=== PATIENT | male | born 1985 | race Caucasian/White ===

== ENCOUNTER → 2018-08-13 16:22 | Outpatient (CLI) | payer OTHER, MEDICAID, SELFPAY | DX: Z23 Encounter for immunization (principal) | CPT/HCPCS: 90471; 90686 ==

== ENCOUNTER → 2019-04-10 07:59 | Outpatient (CLI) | payer OTHER, MEDICAID, SELFPAY ==
[2019-04-10 08:51] LABS: Add Manual Diff / Slide Review NO; Basophils Absolute Auto 0 /uL (0-100); Basophils Percent Auto 0.2 % (0-2); Eosinophils Absolute Auto 100 /uL (0-450); Eosinophils Percent Auto 1.3 % (2-4); Hematocrit 45.4 % (41-53); Hemoglobin 15.4 g/dL (13.5-17.5); Lymphocytes Absolute Auto 1100 /uL (1100-4500); Lymphocytes Percent Auto 22.5 % (25-40); Mean Corpuscular Hemoglobin 28.8 PG (26-34); Mean Corpuscular Volume 84.8 fL (80-100); Monocytes Absolute Auto 300 /uL (0-900); Monocytes Percent Auto 5.6 % (3-14); Neutrophils Absolute Auto 3500 /uL (1500-7000); Neutrophils Percent Auto 70.4 % (50-75); Platelet Count 265 X10^3/uL (150-400); Red Blood Cell Count 5.35 X10^6/uL (4.5-5.9); Red Cell Distribution Width 12.8 % (11.6-14.8)
[2019-04-10 09:13] LABS: Alanine Aminotransferase 36 IU/L (21-72); Albumin 4.4 g/dL (3.5-5.0); Albumin Globulin Ratio 1.8 (1.0-2.8); Alkaline Phosphatase 101 U/L (38-126); Aspartate Aminotransferase 29 IU/L (17-59); Bilirubin Total 0.2 mg/dL (0.2-1.3); Blood Urea Nitrogen 15 mg/dL (9-20); Calcium 9.1 mg/dL (8.4-10.2); Carbon Dioxide 30 mmol/L (22-32); Chloride 102 mmol/L (98-107); Estimated Glomerular Filt Rate > 60.0 mL/min (>60); Globulin 2.5 g/dL (1.7-4.1); Glucose 88 mg/dL (70-100); HEMOLYSIS < 15 (0-50); Potassium 4.5 mmol/L (3.4-5.1); Sodium 140 mmol/L (137-145); Total Protein 6.9 g/dL (6.3-8.2)
== END ==
PROVIDERS: PCP Family Medicine; Visit Provider Psychiatry & Neurology Psychiatry
DX: F33.9 Major depressive disorder, recurrent, unspecified (principal); F41.9 Anxiety disorder, unspecified; G47.00 Insomnia, unspecified
CPT/HCPCS: 36415; 80053; 80183; 85025

== ENCOUNTER → 2019-08-14 08:32 | Outpatient (CLI) | payer OTHER, MEDICAID, SELFPAY | PROVIDERS: PCP Family Medicine | DX: Z23 Encounter for immunization (principal) | CPT/HCPCS: 90471; 90686 ==

== ENCOUNTER → 2019-11-02 14:17 | Outpatient (CLI) | payer OTHER, MEDICAID, SELFPAY ==
[2019-11-02 16:06] LABS: Influenza A - CEPHEID Flu A NEGATIVE (NEGATIVE); Influenza B - CEPHEID Flu B NEGATIVE (NEGATIVE)
== END ==
PROVIDERS: PCP Family Medicine; Visit Provider Nurse Practitioner
DX: R68.89 Other general symptoms and signs (principal)
CPT/HCPCS: 87502

== ENCOUNTER → 2019-12-25 14:55 | Outpatient (ROUT) | payer OTHER, MEDICAID, SELFPAY ==
[2019-12-25 15:31] LABS: Influenza A - CEPHEID Flu A NEGATIVE (NEGATIVE); Influenza B - CEPHEID Flu B NEGATIVE (NEGATIVE)
== END ==
PROVIDERS: Visit Provider Student in an Organized Health Care Education/Training Program
DX: R05 Cough (principal); R52 Pain, unspecified
CPT/HCPCS: 87502

== ENCOUNTER → 2020-02-02 11:11 | Outpatient (CLI) | payer OTHER, MEDICAID, SELFPAY | PROVIDERS: PCP Family Medicine; Visit Provider Physician Assistant | DX: J02.9 Acute pharyngitis, unspecified (principal) | CPT/HCPCS: 87070 ==

== ENCOUNTER → 2020-02-15 11:50 | Outpatient (CLI) | payer OTHER, MEDICAID, SELFPAY ==
[2020-02-17 04:12] LABS: COVID19 Sendout Not Detected (Not Detected)
== END ==
PROVIDERS: PCP Family Medicine; Visit Provider Physician Assistant
DX: R05 Cough (principal)
CPT/HCPCS: 87635

== ENCOUNTER → 2020-03-19 10:57 | Outpatient (CLI) | payer OTHER, MEDICAID, SELFPAY ==
[2020-03-19 12:02] LABS: Add Manual Diff / Slide Review NO; Basophils Absolute Auto 0 /uL (0-100); Basophils Percent Auto 0.3 % (0-2); Eosinophils Absolute Auto 100 /uL (0-450); Eosinophils Percent Auto 1.8 % (2-4); Hematocrit 47.2 % (41-53); Hemoglobin 15.8 g/dL (13.5-17.5); Lymphocytes Absolute Auto 900 /uL (1100-4500); Lymphocytes Percent Auto 17.1 % (25-40); Mean Corpuscular HGB Conc 33.5 % (30-36); Mean Corpuscular Hemoglobin 29.8 PG (26-34); Monocytes Absolute Auto 300 /uL (0-900); Monocytes Percent Auto 5.2 % (3-14); Neutrophils Absolute Auto 4100 /uL (1500-7000); Neutrophils Percent Auto 75.6 % (50-75); Platelet Count 243 X10^3/uL (150-400); Red Cell Distribution Width 13.8 % (11.6-14.8); White Blood Cell Count 5.4 X10^3/uL (4.5-11.0)
[2020-03-19 13:06] LABS: Alanine Aminotransferase 21 IU/L (<50); Albumin 4.9 g/dL (3.5-5.0); Albumin Globulin Ratio 1.6 (1.0-2.8); Alkaline Phosphatase 82 U/L (38-126); Aspartate Aminotransferase 27 IU/L (17-59); BUN Creatinine Ratio 15.7 (6-22); Bilirubin Total 0.3 mg/dL (0.2-1.3); Blood Urea Nitrogen 16 mg/dL (9-20); Calcium 9.7 mg/dL (8.4-10.2); Carbon Dioxide 25 mmol/L (22-32); Chloride 104 mmol/L (98-107); Estimated Glomerular Filt Rate > 60.0 mL/min (>60); Glucose 93 mg/dL (70-100); HEMOLYSIS < 15 (0-50); Potassium 4.5 mmol/L (3.4-5.1); Sodium 139 mmol/L (137-145); Total Protein 7.9 g/dL (6.3-8.2)
[2020-03-20 01:44] LABS: Carbamazepine Tegretol Level 0.5 ug/mL (4.0-12.0)
== END ==
PROVIDERS: PCP Psychiatry & Neurology Psychiatry; Referring Provider Psychiatry & Neurology Psychiatry; Visit Provider Psychiatry & Neurology Psychiatry
DX: F41.9 Anxiety disorder, unspecified (principal); F90.9 Attention-deficit hyperactivity disorder, unspecified type
CPT/HCPCS: 36415; 80053; 80156; 85025

== ENCOUNTER → 2020-10-20 12:52 | Outpatient (CLI) | payer OTHER, MEDICAID, SELFPAY | PROVIDERS: PCP Psychiatry & Neurology Psychiatry; Referring Provider Internal Medicine; Visit Provider Internal Medicine | DX: Z23 Encounter for immunization (principal) | CPT/HCPCS: 90471; 90686 ==

== ENCOUNTER → 2021-08-19 11:01 | Outpatient (CLI) | payer OTHER, MEDICAID, SELFPAY ==
[2021-08-19 14:13] LABS: COVID19 -Nasal RAPID Negative (Negative)
== END ==
PROVIDERS: PCP Psychiatry & Neurology Psychiatry; Visit Provider Physician Assistant
DX: Z20.822 Contact with and (suspected) exposure to COVID-19 (principal)
CPT/HCPCS: 87635

== ENCOUNTER → 2021-08-24 12:31 | Outpatient (CLI) | payer OTHER, MEDICAID, SELFPAY ==
[2021-08-24 13:31] LABS: COVID19 -Nasal RAPID Negative (Negative)
== END ==
PROVIDERS: PCP Psychiatry & Neurology Psychiatry; Referring Provider Nurse Practitioner Family; Visit Provider Nurse Practitioner Family
DX: Z20.822 Contact with and (suspected) exposure to COVID-19 (principal)
CPT/HCPCS: 87635

== ENCOUNTER → 2021-08-29 17:20 | Outpatient (CLI) | payer OTHER, MEDICAID, SELFPAY ==
[2021-08-29 18:25] LABS: COVID19 -Nasal RAPID Negative (Negative)
== END ==
PROVIDERS: PCP Psychiatry & Neurology Psychiatry; Visit Provider Nurse Practitioner Family
DX: Z20.822 Contact with and (suspected) exposure to COVID-19 (principal); J02.9 Acute pharyngitis, unspecified
CPT/HCPCS: 87635

== ENCOUNTER → 2021-09-01 | Outpatient (CLI) | payer OTHER, MEDICAID, SELFPAY | PROVIDERS: PCP Psychiatry & Neurology Psychiatry; Referring Provider Internal Medicine; Visit Provider Internal Medicine | DX: Z23 Encounter for immunization (principal) | CPT/HCPCS: 90471; 90686 ==

== ENCOUNTER → 2021-10-21 11:17 | Outpatient (CLI) | payer OTHER, MEDICAID, SELFPAY ==
[2021-10-21 11:50] LABS: Add Manual Diff / Slide Review NO; Basophils Absolute Auto 0 /uL (0-100); Basophils Percent Auto 0.1 % (0-2); Eosinophils Absolute Auto 100 /uL (0-450); Eosinophils Percent Auto 1.9 % (2-4); Hematocrit 43.8 % (41-53); Hemoglobin 15.1 g/dL (13.5-17.5); Lymphocytes Absolute Auto 1100 /uL (1100-4500); Lymphocytes Percent Auto 18.9 % (25-40); Mean Corpuscular HGB Conc 34.5 % (30-36); Mean Corpuscular Hemoglobin 29.7 PG (26-34); Mean Corpuscular Volume 86.1 fL (80-100); Monocytes Absolute Auto 300 /uL (0-900); Monocytes Percent Auto 5.3 % (3-14); Neutrophils Absolute Auto 4300 /uL (1500-7000); Neutrophils Percent Auto 73.8 % (50-75); Platelet Count 270 X10^3/uL (150-400); Red Blood Cell Count 5.09 X10^6/uL (4.5-5.9); Red Cell Distribution Width 13.1 % (11.6-14.8); White Blood Cell Count 5.8 X10^3/uL (4.5-11.0)
[2021-10-21 12:02] LABS: Alanine Aminotransferase 37 IU/L (<50); Albumin 4.3 g/dL (3.5-5.0); Albumin Globulin Ratio 1.4 (1.0-2.8); Alkaline Phosphatase 110 U/L (38-126); Aspartate Aminotransferase 33 IU/L (17-59); Bilirubin Total 0.2 mg/dL (0.2-1.3); Blood Urea Nitrogen 16 mg/dL (9-20); Calcium 9.1 mg/dL (8.4-10.2); Carbon Dioxide 30 mmol/L (22-32); Chloride 102 mmol/L (98-107); Estimated Glomerular Filt Rate > 60.0 mL/min (>60); Glucose 142 mg/dL (70-100); HEMOLYSIS 16 (0-50); Sodium 139 mmol/L (137-145); Total Protein 7.3 g/dL (6.3-8.2)
[2021-10-21 12:14] LABS: Potassium 3.8 mmol/L (3.4-5.1)
== END ==
PROVIDERS: PCP Student in an Organized Health Care Education/Training Program; Referring Provider Psychiatry & Neurology Psychiatry; Visit Provider Psychiatry & Neurology Psychiatry
DX: F33.9 Major depressive disorder, recurrent, unspecified (principal); F90.9 Attention-deficit hyperactivity disorder, unspecified type; F41.9 Anxiety disorder, unspecified; G47.00 Insomnia, unspecified
CPT/HCPCS: 36415; 80053; 85025

== ENCOUNTER 2021-10-31 19:24 | Emergency (ER) | payer OTHER, SELFPAY ==
[2021-10-31 19:42] VITALS: BP 215/115; PULSE 63; RESP 18; TEMP 36.5; O2SAT 98
--- NOTE | 2021-10-31 20:01 | ED.GENADULT ---
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 He does not think it punctured through his skin, he felt hit and then let go of everything and it did not penetrate the outer layer of skin. Patient does not have any marking on his pain, he did not bleed, does not and penetrated his. Related Data Home Medications Medication Instructions Recorded Confirmed BusPIRone Hydrochloride (Buspirone 30 mg PO AM #0 10/22/09 08/18/20 HCl) buspirone 30 mg tablet mg PO BID tab 11/02/19 08/18/20 levothyroxine [L-Thyroxine] PO 11/02/19 08/18/20 methylphenidate HCl [Ritalin] PO 11/02/19 08/18/20 oxcarbazepine 600 mg tablet 600 mg PO TID tab 11/02/19 08/18/20 sertraline PO 11/02/19 08/18/20 Previous Rx's Medication Instructions Recorded albuterol sulfate 90 mcg/actuation 2 puff INHALATION Q4-6H PRN #8 gram 11/02/19 aerosol inhaler benzonatate 100 mg capsule 100 mg PO BID PRN #20 cap 11/02/19 mupirocin 2 % topical ointment 1 applic TOP TID #30 gram 08/18/20 Allergies Allergy/AdvReac Type Severity Reaction Status Date / Time [place] Allergy Unknown Uncoded 08/18/20 13:21 Review of Systems <KAEL Mckeon - Last Filed: 10/31/21 21:27> Review of Systems Narrative: General: denies fever, chills Head/Neck: denies headache, neck pain Eyes: denies visual changes, eye pain Cardio: denies chest pain, palpitations Respiratory: denies shortness of breath, cough GI: denies abdominal pain, nausea, vomiting, or diarrhea : denies dysuria, hematuria MSK: denies joint pain, muscle weakness Skin: denies rash, itching Neuro: denies numbness, tingling Patient History <KAEL Mckeon - Last Filed: 10/31/21 21:27> Medical History Skin lesion of hand Social History Smoking Status: Former smoker Smoking Status: Former smoker tobacco type: vaping Exam <KAEL Mckeon - Last Filed: 10/31/21 21:27> Narrative Exam Narrative: Independently reviewed vitals signs and nursing notes. General: Awake, alert, nontoxic, no cardiorespiratory distress Head/Neck: Atraumatic, neck full range of motion Eyes: EOMI, conjunctiva normal Nose: nares patent, no rhinorrhea Mouth/Throat: moist mucus membranes Cardio: Regular rate and rhythm, no peripheral edema Respiratory: respirations unlabored without wheezing, stridor, or rales. No retractions. GI: Abdomen soft, nontender MSK: Moves all extremities, neurovascularly intact Skin: Normal capillary refill, no rash, left hand without any sign of needlestick, no erythema or edema. Neuro: Normal speech and cognition, normal gait Initial Vital Signs Initial Vital Signs: Vital Signs Temperature 97.7 F 10/31/21 19:42 Pulse Rate 63 10/31/21 19:42 Respiratory Rate 18 10/31/21 19:42 Blood Pressure 215/115 H 10/31/21 19:42 Pulse Oximetry 98 10/31/21 19:42 <Andrew Real DO - Last Filed: 11/01/21 07:00> Initial Vital Signs Initial Vital Signs: Vital Signs Temperature 97.7 F 10/31/21 19:42 Pulse Rate 63 10/31/21 19:42 Respiratory Rate 18 10/31/21 19:42 Blood Pressure 215/115 H 10/31/21 19:42 Pulse Oximetry 98 10/31/21 19:42 Course <KAEL Mckeon - Last Filed: 10/31/21 21:27> Vital Signs Vital signs: Vital Signs - 8 hr 10/31/21 19:42 10/31/21 20:27 Temperature 97.7 F Pulse Rate 63 68 Respiratory Rate 18 18 Blood Pressure 215/115 H 188/112 H Pulse Oximetry 98 99 <Andrew Real DO - Last Filed: 11/01/21 07:00> Vital Signs Vital signs: Vital Signs - 8 hr 10/31/21 19:42 10/31/21 20:27 Temperature 97.7 F Pulse Rate 63 68 Respiratory Rate 18 18 Blood Pressure 215/115 H 188/112 H Pulse Oximetry 98 99 Medical Decision Making <KAEL Mckeon - Last Filed: 10/31/21 21:27> MDM Narrative Medical decision making narrative: 36-year-old male presents to emergency department with complaint of possible needle stick to his left hand while cleaning his tray. Patient is employed here at the hospital, there was a tuberculin syringe with a needle I it on a tree he went to clean it he felt a poke, and after everything, noticed a needle. He did not bleed, there was not deep penetration by this needle, he did not meet criteria for substantial blood borne exposure, there is no needle prick present. [id number]. Red packet for blood borne exposure was not completed as patient did not meet criteria. Patient understands and agrees to this, he does endorse drinking at least 3 energy drinks today, so his blood pressure was rechecked until toes less than 200, he did not have a headache, or any other symptoms. Patient is appropriate and amenable to discharge home. Vital signs are stable on repeat examination is unremarkable. Patient has been informed of results. Patient has been given strict return to ER precautions for any new or worsening symptoms. Patient understands to follow up closely with outpatient providers as instructed. Patient understands plan and agrees to discharge home. All questions and concerns answered at this time. Discharge Plan Departure Patient Disposition: Home Clinical Impression: Work related injury Needle exposure Qualifiers: Encounter type: initial encounter Qualified Code(s): X58.XXXA - Exposure to other specified factors, initial encounter Instructions: DI for Accidental Exposure to Body Fluids Activity Restrictions/Additional Instructions: *You have been diagnosed with a needle exposure but I do not feel like this is a bloodborn exposure. Please follow-up with your primary care provider if you have any worsening of the condition whatsoever. Your L and I claim [place] which is your reference if for some reason [id number]. I am sorry that this happened, I hope this never happened she again. I am glad that you did not get stuck deeply. Have a good shift tomorrow :) *What to do: *Please continue to take your regular medications as directed. [ ] New medication prescriptions sent to your pharmacy: [ ] [ ] New medication written as a paper prescription [ x] No new medications given *Please follow up with your primary care provider in 2-3 days, call for an appointment. Let them know you were seen in the Emergency Department and that we ask that you be seen in follow up. We will electronically transmit a record of today's note if your PCP is in our system *If you do not have a primary care provider please contact the [facility] Resource line at [phone]. They will ask some questions about your medical history and help get you set up with a doctor in the community. *Return to Emergency Department if you should have any new, worsening or concerning symptoms, such as [fever greater than 101F, chills, worsening pain, persistent vomiting or other bothersome symptoms] Prescriptions: No Action oxcarbazepine 600 mg tablet 600 mg PO TID 0RF levothyroxine PO 0RF buspirone 30 mg tablet PO BID 0RF sertraline PO 0RF methylphenidate HCl PO 0RF benzonatate 100 mg capsule 100 mg PO BID PRN (Reason: cough) Qty: 20 0RF albuterol sulfate 90 mcg/actuation HFA aerosol inhaler 2 puff INHALATION Q4-6H PRN (Reason: Cough, wheezing, shortness of breath) Qty: 8 0RF mupirocin 2 % ointment 1 applic TOP TID Qty: 30 0RF BusPIRone Hydrochloride (Buspirone HCl) 30 mg PO AM Qty: 0 0RF Referrals: Joleen Fulton MD [Primary Care Provider] - <Andrew Real, DO - Last Filed: 11/01/21 07:00> Cosign ED Attending Coskgature Attestation: Dr Real Co-Sign Statement: I was available for consultation during this patient's emergency department visit. This chart is signed by myself for administrative purposes only. I did not have direct contact with this patient during this visit. They were seen independently by the APC.
[2021-10-31 20:27] VITALS: BP 188/112; PULSE 68; RESP 18; O2SAT 99
== END 2021-10-31 20:27 | disposition home or self-care (01) ==
PROVIDERS: Emergency Provider Nurse Practitioner Critical Care Medicine; PCP Student in an Organized Health Care Education/Training Program
DX: Z77.21 Contact with and (suspected) exposure to potentially hazardous body fluids (principal); Z87.891 Personal history of nicotine dependence
CPT/HCPCS: 99281

== ENCOUNTER 2022-09-12 17:45 | Emergency (ER) | payer OTHER, SELFPAY ==
[2022-09-12 18:12] VITALS: BP 184/113; PULSE 67; RESP 18; TEMP 36.6; O2SAT 98; BMI 26.6
--- NOTE | 2022-09-12 19:21 | ED.UPPEXIN ---
HPI - Extremity Injury (Upper) <KAEL Mckeon - Last Filed: 09/12/22 19:26> General Chief Complaint: Extremity Injury, Upper Stated Complaint: RT. HAND PINKY LACERATION Time Seen by Provider: 09/12/22 17:58 Source: patient Mode of arrival: Ambulatory History of Present Illness HPI narrative: This is a 37-year-old male who presents to the emergency department with a laceration to the lateral aspect of his left little finger adjacent to the PIP joint. Patient works in the kitchen, states that he dropped the knife and it cut the lateral aspect of his left hand little finger. He is [id number], bleeding was controlled with Coban initially. He does not remember when his last tetanus vaccination was, states it is over 5 years so he agrees to have another tetanus vaccination today. He denies any range of motion deficit, numbness or tingling, or foreign body. Related Data Home Medications Medication Instructions Recorded Confirmed BusPIRone Hydrochloride (Buspirone 30 mg PO AM ##0 10/22/09 08/18/20 HCl) buspirone 30 mg tablet mg PO BID 11/02/19 08/18/20 levothyroxine [L-Thyroxine] PO 11/02/19 08/18/20 methylphenidate HCl [Ritalin] PO 11/02/19 08/18/20 oxcarbazepine 600 mg tablet 600 mg PO TID 11/02/19 08/18/20 sertraline PO 11/02/19 08/18/20 Previous Rx's Medication Instructions Recorded albuterol sulfate 90 mcg/actuation 2 puff inhalation Q4-6H PRN Cough, 11/02/19 aerosol inhaler wheezing, shortness of breath #8 grams benzonatate 100 mg capsule 100 mg PO BID PRN cough #20 caps 11/02/19 mupirocin 2 % topical ointment 1 applic topical TID #30 grams 08/18/20 Allergies Allergy/AdvReac Type Severity Reaction Status Date / Time [place] Allergy Unknown Uncoded 08/18/20 13:21 Review of Systems <KAEL Mckeon - Last Filed: 09/12/22 19:26> Review of Systems Narrative: Review of systems is negative for acute abnormalities unless otherwise noted in HPI Patient History <KAEL Mckeon - Last Filed: 09/12/22 19:26> Medical History Skin lesion of hand Social History Smoking Status: Former smoker Smoking Status: Former smoker tobacco type: vaping Substance Use Type: does not use Exam <KAEL Mckeon - Last Filed: 09/12/22 19:26> Narrative Exam Narrative: Reviewed vitals signs and nursing notes. General: cooperative, comfortable, in no acute distress, well groomed MSK: moves all extremities, neurovascularly intact, no weakness, normal tone, full range of motion both flexion and extension of his left hand little finger, cap refills brisk Skin: brisk capillary refill, without pallor, laceration to the lateral aspect of his 5th digit left hand, adjacent to the PIP joint, approximately 1 cm long Neuro: normal speech and cognition, A&O x3, ambulatory, clear speech Psych: mental status is grossly normal, congruent mood, normal affect, pleasant and cooperative Initial Vital Signs Initial Vital Signs: Vital Signs Temperature 97.9 F 09/12/22 18:12 Pulse Rate 67 09/12/22 18:12 Respiratory Rate 18 09/12/22 18:12 Blood Pressure 184/113 H 09/12/22 18:12 Pulse Oximetry 98 09/12/22 18:12 Oxygen Delivery Method 09/12/22 18:12 <Sky Morgan MD - Last Filed: 09/12/22 20:44> Initial Vital Signs Initial Vital Signs: Vital Signs Temperature 97.9 F 09/12/22 18:12 Pulse Rate 67 09/12/22 18:12 Respiratory Rate 18 09/12/22 18:12 Blood Pressure 184/113 H 09/12/22 18:12 Pulse Oximetry 98 09/12/22 18:12 Oxygen Delivery Method 09/12/22 18:12 Procedures <KAEL Mckeon - Last Filed: 09/12/22 19:26> Laceration Repair Laceration 1: Site: hand Side (If applicable): left Size (cm): 1 Description: linear Depth: simple, single layer Local Anesthetic: lidocaine 2% Amount of anesthesia used (mL): 2 Pre-repair: wound explored, irrigated extensively and deep structures intact Skin layer closed with: nylon Skin layer suture size: 6-0 Number of sutures: 4 Technique: simple, interrupted Course <KAEL Mckeon - Last Filed: 09/12/22 19:26> Orders Ordered: Discontinued Medications Bacitracin (Bacitracin Oint 0.9 Gm Pckt) 1 applic TOP NOW ONE Stop: 09/12/22 19:04 Last Admin: 09/12/22 19:27 Dose: 1 applic Documented By: TRICE Diphtheria/Tetanus/Acell Pertussis (Tet,Diph,Pertuss(Acell),Vac/Pf 0.5 Ml Syringe) 0.5 ml IM .ONCE ONE Stop: 09/12/22 18:47 Last Admin: 09/12/22 19:26 Dose: 0.5 ml Documented By: TRICE Ketorolac Tromethamine (Ketorolac 10 Mg Tablet) 10 mg PO NOW ONE Stop: 09/12/22 18:48 Last Admin: 09/12/22 19:27 Dose: 10 mg Documented By: TRICE Lidocaine HCl (Lidocaine 1% 20 Ml) 20 ml INJ INTRA-OP ONE Stop: 09/12/22 18:19 Last Admin: 09/12/22 18:38 Dose: Not Given Documented By: TRICE Lidocaine HCl (Lidocaine 2% Inj Mdv 20ml) 1 ml SUBCUT NOW ONE Stop: 09/12/22 18:19 Last Admin: 09/12/22 18:39 Dose: Not Given Documented By: TRICE Vital Signs Vital signs: Vital Signs - 8 hr 09/12/22 18:12 Temperature 97.9 F Pulse Rate 67 Respiratory Rate 18 Blood Pressure 184/113 H Pulse Oximetry 98 Oxygen Delivery Method Room Air <Sky Morgan MD - Last Filed: 09/12/22 20:44> Orders Ordered: Discontinued Medications Bacitracin (Bacitracin Oint 0.9 Gm Pckt) 1 applic TOP NOW ONE Stop: 09/12/22 19:04 Last Admin: 09/12/22 19:27 Dose: 1 applic Documented By: TRICE Diphtheria/Tetanus/Acell Pertussis (Tet,Diph,Pertuss(Acell),Vac/Pf 0.5 Ml Syringe) 0.5 ml IM .ONCE ONE Stop: 09/12/22 18:47 Last Admin: 09/12/22 19:26 Dose: 0.5 ml Documented By: TRICE Ketorolac Tromethamine (Ketorolac 10 Mg Tablet) 10 mg PO NOW ONE Stop: 09/12/22 18:48 Last Admin: 09/12/22 19:27 Dose: 10 mg Documented By: TRICE Lidocaine HCl (Lidocaine 1% 20 Ml) 20 ml INJ INTRA-OP ONE Stop: 09/12/22 18:19 Last Admin: 09/12/22 18:38 Dose: Not Given Documented By: TRICE Lidocaine HCl (Lidocaine 2% Inj Mdv 20ml) 1 ml SUBCUT NOW ONE Stop: 09/12/22 18:19 Last Admin: 09/12/22 18:39 Dose: Not Given Documented By: TRICE Vital Signs Vital signs: Vital Signs - 8 hr 09/12/22 18:12 Temperature 97.9 F Pulse Rate 67 Respiratory Rate 18 Blood Pressure 184/113 H Pulse Oximetry 98 Oxygen Delivery Method Room Air MDM - Extremity Injury (Upper) <KAEL Mckeon - Last Filed: 09/12/22 19:26> MDM Narrative Medical decision making narrative: This is a 37-year-old male presents to the emergency department after a work-related injury where he accidentally cut the lateral aspect of his left little finger when he dropped a knife. No foreign body, patient is neurovascularly intact without range of motion deficit. His tetanus vaccination was updated, suture repair was completed of his 1 cm laceration to the lateral aspect with 4 nylon sutures. 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 Patient states understanding, his L and I paperwork was [place], [id number]. He was given instructions to have his sutures removed in 7-10 days, return for any redness or streaking up his hand, signs of infection, increasing pain or range of motion abnormality. Patient is appropriate and amenable to discharge home. Vital signs are stable on repeat examination is unremarkable. Patient has been informed of results. Patient has been given strict return to ER precautions for any new or worsening symptoms. Patient understands to follow up closely with outpatient providers as instructed. Patient understands plan and agrees to discharge home. All questions and concerns answered at this time. Discharge Plan Departure Patient Disposition: Home Clinical Impression: Work related injury Finger laceration Qualifiers: Encounter type: initial encounter Finger: little finger Damage to nail status: without damage Foreign body presence: without foreign body Laterality: left Qualified Code(s): S61.217A - Laceration without foreign body of left little finger without damage to nail, initial encounter Instructions: DI for Laceration Repair -- Finger Activity Restrictions/Additional Instructions: *You have been diagnosed with a laceration to your 5th digit left hand. Please have your sutures removed in 7-10 days as long as it is fully healed and does not have any blood coming from the wound any longer. Please keep it covered with antibiotic ointment and a Band-Aid, while you are working, please wear a glove to prevent anything from outside getting into your wound. Thank you for your patients today, I hope this gets better quickly, if you notice signs of redness or streaking up your hand, please come back for another evaluation using your same L&I claim number. Please use Tylenol and ibuprofen as needed for pain. *What to do: *Please continue to take your regular medications as directed. [ ] New medication prescriptions sent to your pharmacy: [ ] [ ] New medication written as a paper prescription [ x] No new medications given *Please follow up with your primary care provider in 2-3 days, call for an appointment. Let them know you were seen in the Emergency Department and that we asked that you be seen for follow-up. We will electronically transmit a record of today's note if your PCP is in our system *If you do not have a primary care provider please contact [phone] to establish care with one of the [facility] primary care providers. *Return to Emergency Department if you should have any new, worsening, or concerning symptoms, such as [fever greater than 101F, chills, worsening pain, persistent vomiting or other bothersome symptoms]. Prescriptions: No Action oxcarbazepine 600 mg tablet 600 mg PO TID levothyroxine PO buspirone 30 mg tablet PO BID sertraline PO methylphenidate HCl PO benzonatate 100 mg capsule 100 mg PO BID PRN (Reason: cough) Qty: 20 0RF albuterol sulfate 90 mcg/actuation HFA aerosol inhaler 2 puff INHALATION Q4-6H PRN (Reason: Cough, wheezing, shortness of breath) Qty: 8 0RF mupirocin 2 % ointment 1 applic TOP TID Qty: 30 0RF BusPIRone Hydrochloride (Buspirone HCl) 30 mg PO AM Qty: 0 Referrals: Joleen Fulton MD [Primary Care Provider] - Visit Report Forms: Patient Portal/API <Sky Morgan MD - Last Filed: 09/12/22 20:44> Cosign ED Attending Cosignature Attestation: I was immediately available in the department for consultation. ?This documentation has been reviewed and I agree with assessment and plan. Supervised by Sky Morgan MD
[2022-09-12] MEDS: TET,DIPH,PERTUSS(ACELL),VAC/PF 0.5 ML SYRINGE IM (19:26)
[2022-09-12] MEDS: BACITRACIN OINT 0.9 GM PCKT 1 APPLIC TOP (19:27)
[2022-09-12] MEDS: KETOROLAC 10 MG TABLET PO (19:27)
== END 2022-09-12 19:28 | disposition home or self-care (01) ==
PROVIDERS: Emergency Provider Nurse Practitioner Critical Care Medicine; PCP Student in an Organized Health Care Education/Training Program
DX: S61.217A Laceration without foreign body of left little finger without damage to nail, initial encounter (principal); W26.0XXA Contact with knife, initial encounter; Z23 Encounter for immunization; Y99.0 Civilian activity done for income or pay
CPT/HCPCS: 12001; 90471; 99283; 90715

== ENCOUNTER → 2022-10-02 19:11 | Outpatient (CLI) | payer OTHER, SELFPAY | PROVIDERS: PCP Student in an Organized Health Care Education/Training Program; Referring Provider Internal Medicine; Visit Provider Internal Medicine | DX: Z23 Encounter for immunization (principal) | CPT/HCPCS: 90471; 90686 ==

== ENCOUNTER 2022-12-18 13:09 | Emergency (ER) | payer OTHER, SELFPAY ==
[2022-12-18] VITALS (27 sets, daily range): BP systolic 158–197; BP diastolic 91–126; PULSE 49–80; RESP 11–24; TEMP 36.4; O2SAT 96–100; BMI 28.3
--- NOTE | 2022-12-18 13:18 | DI.RAD.S_ITS ---
PROCEDURE: XR CHEST 1V INDICATIONS: chest pain TECHNIQUE: One view of the chest was acquired. COMPARISON: None. FINDINGS: Surgical changes and devices: None. Lungs and pleura: Lungs are clear. No pleural effusions or pneumothorax. Mediastinum: Mediastinal contours appear normal. Heart size is normal. Bones and chest wall: No suspicious bony lesions. Overlying soft tissues appear unremarkable. IMPRESSION: No acute pulmonary process. Dictated by: Sidra Madrigal M.D. on 12/18/2022 at 14:25 Approved by: Sidra Madrigal M.D. on 12/18/2022 at 14:26
[2022-12-18] MEDS: ASPIRIN 81 MG CHEW TAB 324 MG PO (13:43)
[2022-12-18] MEDS: NITROGLYCERIN 0.4 MG SL TAB SL ×2 (13:43→14:04)
[2022-12-18 13:57] LABS: Alanine Aminotransferase 32 IU/L (<50); Albumin 4.7 g/dL (3.5-5.0); Albumin Globulin Ratio 1.4 (1.0-2.8); Alkaline Phosphatase 107 U/L (38-126); Aspartate Aminotransferase 27 IU/L (17-59); BUN Creatinine Ratio 14.3 (6-22); Bilirubin Total 0.3 mg/dL (0.2-1.3); Blood Urea Nitrogen 14 mg/dL (9-20); Carbon Dioxide 29 mmol/L (22-32); Chloride 100 mmol/L (98-107); Creatine Kinase 95 U/L (55-170); Estimated Glomerular Filt Rate > 60 mL/min (>60); Globulin 3.4 g/dL (1.7-4.1); Glucose 88 mg/dL (70-100); HEMOLYSIS < 15 (0-50); Lipase 102 U/L (23-300); Magnesium 1.9 mg/dL (1.6-2.3); Sodium 140 mmol/L (137-145); Total Protein 8.1 g/dL (6.3-8.2)
[2022-12-18 13:58] LABS: Add Manual Diff / Slide Review NO; Basophils Absolute Auto 0 /uL (0-100); Basophils Percent Auto 0.2 % (0-2); Eosinophils Absolute Auto 100 /uL (0-450); Eosinophils Percent Auto 1.7 % (2-4); Hematocrit 46.7 % (41-53); Hemoglobin 15.8 g/dL (13.5-17.5); Lymphocytes Absolute Auto 1300 /uL (1100-4500); Lymphocytes Percent Auto 21.7 % (25-40); Mean Corpuscular HGB Conc 33.9 % (30-36); Mean Corpuscular Hemoglobin 29.1 PG (26-34); Mean Corpuscular Volume 85.9 fL (80-100); Monocytes Absolute Auto 300 /uL (0-900); Monocytes Percent Auto 5.8 % (3-14); Neutrophils Absolute Auto 4200 /uL (1500-7000); Neutrophils Percent Auto 70.6 % (50-75); Platelet Count 251 X10^3/uL (150-400); Red Blood Cell Count 5.43 X10^6/uL (4.5-5.9); Red Cell Distribution Width 13.3 % (11.6-14.8)
[2022-12-18 14:09] LABS: Troponin I < 0.012 ng/mL (0.01-0.034)
[2022-12-18] MEDS: ACETAMINOPHEN 325 MG TABLET 975 MG PO (14:11)
--- NOTE | 2022-12-18 14:12 | PC.NURSE ---
chest pain relieved post 2nd nitro.
[2022-12-18 14:25] LABS: COVID19 -Nasal RAPID Negative (Negative)
[2022-12-18 14:50] LABS: Prothrombin Time 11.6 SECONDS (10.1-12.7)
[2022-12-18 14:52] LABS: PTT Partial Thromboplastin Tim 35 SECONDS (26-36)
--- NOTE | 2022-12-18 15:05 | ED_ITS ---
HPI - Chest Pain General Chief Complaint: Chest Pain Stated Complaint: chest pain,dizzy Time Seen by Provider: 12/18/22 14:13 Source: patient Mode of arrival: Ambulatory Limitations: no limitations History of Present Illness HPI narrative: This is a 37-year-old male with known hypertension hypothyroidism, bipolar d isorder who presents with complaint of chest pain substernal without radiation, shortness of breath and dizziness. Patient states he is had a couple of episodes in the last month always [employer] active usually work while he is exerting himself but once home. He states he is always been walking around her active when it. Today started about 11:00 a.m. this morning while he was at work. Patient states did not resolve until he got nitro sublingual. Had 2 nitro sublingual which resolved his chest pain. He also had aspirin 324 mg. Denies fevers, chills no cold cough or congestion. No new swelling in his extremities. Denies nausea or vomiting. No syncope but he did feel lightheaded. No diaphoresis. No issues such as diarrhea, constipation or urinary symptoms. Patient states he used to be on lisinopril it was stopped about a year ago has who is on propranolol his primary care physician thought that would be adequate for blood pressure control. He continues take his propranolol daily, he is on oxcarbazepine, BuSpar, sertraline Concerta for his bipolar as well as levothyroxine he had seen his physician for follow-up in last week they had written to start losartan 100 mg starting today. Patient has not been able to fill it yet today. He did have a prior episode of lithium p oisoning in the past had what sounds like a ureteral stent at that time. Patient states no other surgeries. He vapes tobacco, no alcohol, no illicit. His mom has hypertension, no other known cardiac history in his family. He has a sibling that is a year older which he states is healthy. His primary care physician is Dr. Taylor. Related Data Home Medications Medication Instructions Recorded Confirmed BusPIRone Hydrochloride (Buspirone 30 mg PO AM ##0 10/22/09 08/18/20 HCl) buspirone 30 mg tablet mg PO BID 11/02/19 08/18/20 levothyroxine [L-Thyroxine] PO 11/02/19 08/18/20 methylphenidate HCl [Ritalin] PO 11/02/19 08/18/20 oxcarbazepine 600 mg tablet 600 mg PO TID 11/02/19 08/18/20 sertraline PO 11/02/19 08/18/20 Previous Rx's Medication Instructions Recorded albuterol sulfate 90 mcg/actuation 2 puff inhalation Q4-6H PRN Cough, 11/02/19 aerosol inhaler wheezing, shortness of breath #8 grams benzonatate 100 mg capsule 100 mg PO BID PRN cough #20 caps 11/02/19 mupirocin 2 % topical ointment 1 applic topical TID #30 grams 08/18/20 Allergies Allergy/AdvReac Type Severity Reaction Status Date / Time iodine Allergy Verified 12/18/22 13:12 lithium Allergy Verified 12/18/22 13:12 Review of Systems Review of Systems ROS Unobtainable: All systems reviewed & are unremarkable except as noted in HPI and below Patient History Medical History Skin lesion of hand Social History Smoking Status: Current every day smoker Smoking Status: Current every day smoker tobacco type: vaping Substance Use Type: does not use Exam Narrative Exam Narrative: GENERAL: Alert and oriented x three, male in mild distress. HEENT: Head normocephalic, atraumatic, EOMI, pupils reactive, face symmetric, moist mucous membranes NECK: Supple, full range of motion CARDIOVASCULAR: Regular rate and rhythm without murmurs, rubs or gallops. No JVD. RESPIRATORY: Breath sounds equal bilaterally, no wheezes rales or rhonchi. No tachypnea or accessory muscle use. ABDOMEN: Soft, nontender. Normoactive bowel sounds all 4 quadrants. No guarding or rebound, rigidity, no mass : No CVA tenderness EXTREMITIES: Normal range of motion, no clubbing or edema. Neurovascularly intact NEUROLOGICAL: Cranial nerves II through XII grossly intact. Moving all extremities SKIN: Warm, dry, no petechiae, no rashes or lesions. Initial Vital Signs Initial Vital Signs: Vital Signs Temperature 97.6 F 12/18/22 13:12 Pulse Rate 68 12/18/22 13:12 Respiratory Rate 20 12/18/22 13:12 Blood Pressure 181/98 H 12/18/22 13:12 Pulse Oximetry 98 12/18/22 13:12 Oxygen Delivery Method 12/18/22 13:12 Scores HEART Score Heart Score history: Highly Suspicious Heart Score EKG: Normal Heart Score Age: < 45 years old Heart Score risk factors: 1-2 risk factors Heart Score troponin: < or = to normal limit Heart Score Total: 3 Course Orders Ordered: ED Orders 12/18/22 13:18 XR chest 1V Stat EKG-12 Lead Stat 12/18/22 13:30 Complete Blood Count AUTO DIFF Stat Comprehensive Metabolic Panel Stat Lipase Stat Magnesium Stat Partial Thromboplastin Time Stat Prothrombin Time INR Stat Troponin & CK Cardiac Panel Stat 12/18/22 13:34 COVID19 -Nasal RAPID/Pre-Proc Stat 12/18/22 15:40 Trop I [Troponin I] Stat Nitroglycerin (Nitroglycerin 0.4 Mg Sl Tab) 0.4 mg SL [id number] PRN PRN Reason: Chest Pain Last Admin: 12/18/22 14:04 Dose: 0.4 mg Documented By: Admin: 12/18/22 13:43 Dose: 0.4 mg Documented By: MARGARITA Discontinued Medications Acetaminophen (Acetaminophen 325 Mg Tablet) 975 mg PO NOW ONE Stop: 12/18/22 14:05 Last Admin: 12/18/22 14:11 Dose: 975 mg Documented By: ARLEY Aspirin (Aspirin 81 Mg Chew Tab) 324 mg PO NOW ONE Stop: 12/18/22 13:19 Last Admin: 12/18/22 13:43 Dose: 324 mg Documented By: MARGARITA Hydrochlorothiazide (Hydrochlorothiazide 25 Mg Tablet) 25 mg PO NOW ONE Stop: 12/18/22 16:47 Last Admin: 12/18/22 17:12 Dose: 25 mg Documented By: MORIAH Losartan Potassium (Losartan 50 Mg Tablet) 100 mg PO NOW ONE Stop: 12/18/22 16:47 Last Admin: 12/18/22 17:12 Dose: 100 mg Documented By: MORIAH Consultations Consultation #1: Dr. Taylor, Vital Signs Vital signs: Vital Signs - 8 hr 12/18/22 13:12 12/18/22 14:04 12/18/22 13:42 Temperature 97.6 F Pulse Rate 68 74 68 Respiratory Rate 20 17 Blood Pressure 181/98 H 162/105 H Pulse Oximetry 98 98 Oxygen Delivery Method Room Air 12/18/22 13:50 12/18/22 13:50 12/18/22 14:00 Temperature Pulse Rate 80 Respiratory Rate 16 Blood Pressure 162/102 H 162/105 H Pulse Oximetry 97 Oxygen Delivery Method 12/18/22 14:00 12/18/22 14:10 12/18/22 14:10 Temperature Pulse Rate 68 68 Respiratory Rate 15 14 Blood Pressure 158/91 H Pulse Oximetry 97 96 Oxygen Delivery Method 12/18/22 14:23 12/18/22 14:23 12/18/22 14:30 Temperature Pulse Rate 49 L Respiratory Rate 11 L Blood Pressure 173/102 H 173/103 H Pulse Oximetry 99 Oxygen Delivery Method 12/18/22 14:30 12/18/22 15:00 12/18/22 15:00 Temperature Pulse Rate 58 L 56 L Respiratory Rate 18 19 Blood Pressure 165/102 H Pulse Oximetry 99 99 Oxygen Delivery Method 12/18/22 15:30 12/18/22 15:30 12/18/22 16:11 Temperature Pulse Rate 52 L 63 Respiratory Rate 19 Blood Pressure 158/105 H Pulse Oximetry 98 100 Oxygen Delivery Method 12/18/22 16:13 12/18/22 16:13 12/18/22 16:30 Temperature Pulse Rate 61 Respiratory Rate 17 Blood Pressure 188/119 H 177/111 H Pulse Oximetry 100 Oxygen Delivery Method 12/18/22 16:30 Temperature Pulse Rate 57 L Respiratory Rate 18 Blood Pressure Pulse Oximetry 99 Oxygen Delivery Method MDM - Chest Pain Lab Data 12/18/22 13:30 12/18/22 13:30 Labs: Lab Results 12/18/22 12/18/22 12/18/22 Range/Units 13:30 13:30 13:30 WBC 6.0 (4.5-11.0) X10^3/uL RBC 5.43 (4.5-5.9) X10^6/uL Hgb 15.8 (13.5-17.5) g/dL Hct 46.7 (41-53) % MCV 85.9 (80-100) fL MCH 29.1 (26-34) PG MCHC 33.9 (30-36) % RDW 13.3 (11.6-14.8) % Plt Count 251 (150-400) X10^3/uL Neut % (Auto) 70.6 (50-75) % Lymph % (Auto) 21.7 L (25-40) % Childress % (Auto) 5.8 (3-14) % Eos % (Auto) 1.7 L (2-4) % Baso % (Auto) 0.2 (0-2) % Neut # (Auto) 4200 (0803-5643) /uL Lymph # (Auto) 1300 (3666-4031) /uL Childress # (Auto) 300 (0-900) /uL Eos # (Auto) 100 (0-450) /uL Baso # (Auto) 0 (0-100) /uL PT 11.6 (10.1-12.7) SECONDS INR 1.0 (0.9-1.3) APTT 35 (26-36) SECONDS Sodium 140 (137-145) mmol/L Potassium 4.0 (3.4-5.1) mmol/L Chloride 100 (98-107) mmol/L Carbon Dioxide 29 (22-32) mmol/L BUN 14 (9-20) mg/dL Creatinine 0.98 (0.66-1.25) mg/dL Estimated GFR > 60 (>60) mL/min BUN/Creatinine Ratio 14.3 (6-22) Glucose 88 (70-100) mg/dL Calcium 9.0 (8.4-10.2) mg/dL Magnesium 1.9 (1.6-2.3) mg/dL Total Bilirubin 0.3 (0.2-1.3) mg/dL AST 27 (17-59) IU/L ALT 32 (<50) IU/L Alkaline Phosphatase 107 (38-126) U/L Total Creatine Kinase 95 (55-170) U/L CK-MB (CK-2) TNP CK-MB (CK-2) Rel Index TNP Troponin I < 0.012 (0.01-0.034) ng/mL Total Protein 8.1 (6.3-8.2) g/dL Albumin 4.7 (3.5-5.0) g/dL Globulin 3.4 (1.7-4.1) g/dL Albumin/Globulin Ratio 1.4 (1.0-2.8) Lipase 102 (23-300) U/L SARS-CoV-2 (PCR) (Negative) 12/18/22 12/18/22 Range/Units 13:34 15:40 WBC (4.5-11.0) X10^3/uL RBC (4.5-5.9) X10^6/uL Hgb (13.5-17.5) g/dL Hct (41-53) % MCV (80-100) fL MCH (26-34) PG MCHC (30-36) % RDW (11.6-14.8) % Plt Count (150-400) X10^3/uL Neut % (Auto) (50-75) % Lymph % (Auto) (25-40) % Childress % (Auto) (3-14) % Eos % (Auto) (2-4) % Baso % (Auto) (0-2) % Neut # (Auto) (0618-2862) /uL Lymph # (Auto) (9875-5805) /uL Childress # (Auto) (0-900) /uL Eos # (Auto) (0-450) /uL Baso # (Auto) (0-100) /uL PT (10.1-12.7) SECONDS INR (0.9-1.3) APTT (26-36) SECONDS Sodium (137-145) mmol/L Potassium (3.4-5.1) mmol/L Chloride (98-107) mmol/L Carbon Dioxide (22-32) mmol/L BUN (9-20) mg/dL Creatinine (0.66-1.25) mg/dL Estimated GFR (>60) mL/min BUN/Creatinine Ratio (6-22) Glucose (70-100) mg/dL Calcium (8.4-10.2) mg/dL Magnesium (1.6-2.3) mg/dL Total Bilirubin (0.2-1.3) mg/dL AST (17-59) IU/L ALT (<50) IU/L Alkaline Phosphatase (38-126) U/L Total Creatine Kinase (55-170) U/L CK-MB (CK-2) CK-MB (CK-2) Rel Index Troponin I < 0.012 (0.01-0.034) ng/mL Total Protein (6.3-8.2) g/dL Albumin (3.5-5.0) g/dL Globulin (1.7-4.1) g/dL Albumin/Globulin Ratio (1.0-2.8) Lipase (23-300) U/L SARS-CoV-2 (PCR) Negative (Negative) Urine Dip Bedside Urine Glucose Negative Bedside Urine Bilirubin - Negative Bedside Urine Ketone - Negative Urine Specific Henderson 1.005 Bedside Urine Occult Blood - Negative Bedside Urine pH 6.0 Bedside Urine Protein - Negative Bedside Urine Urobilinogen - Negative Bedside Urine Nitrite - Negative Bedside Urine Leukocytes - Negative Esterase Imaging Data Chest x-ray: Radiologist's Impression: [address] [address] XRay Report Signed Patient: Dylon Rojas MR#: [id number] : 1985 Acct:[id number] Age/Sex: 37 / M Date of Service: 12/18/22 Loc: ED Accession Number: [id number] ?? Procedure: XR chest 1V Ordering Provider: Mitali Delatorre D.O. PROCEDURE:? XR CHEST 1V ? INDICATIONS:? chest pain ? TECHNIQUE:? One view of the chest was acquired.? ? COMPARISON:? None. ? FINDINGS:? ? Surgical changes and devices:? None.? ? Lungs and pleura:? Lungs are clear.? No pleural effusions or pneumothorax.? ? Mediastinum:? Mediastinal contours appear normal.? Heart size is normal.? ? Bones and chest wall:? No suspicious bony lesions.? Overlying soft tissues appear unremarkable.? ? IMPRESSION:? No acute pulmonary process. ? ? Dictated by: Sidra Madrigal M.D. on 12/18/2022 at 14:25 ? ? Approved by: Sidra Madrigal M.D. on 12/18/2022 at 14:26?? ECG Data Attestation: I personally reviewed and interpreted this ECG as follows: Prior ECG tracings: available for review Interpretation: Sinus bradycardia rate of 56 MT 182 QRS of [address] No acute ST elevation depression noted. Patient has prior from 03/15/2009 which appears similar. EKG 2. Bradycardia rate of 47 MT 194 QRS 100 QTC 41[address] No to ST depression or elevation EKG changes noted. MDM Narrative Medical decision making narrative: This is a 37-year-old male who presents with complaint of chest pain substernal without radiation, some dizziness and shortness of breath associated. Patient did not have any dynamic EKG changes in comparison has prior from February 2009. CBC, CMP, lipase, troponin, COVID swab as well as chest x-ray are all negative for acute changes. Patient had aspirin, nitro sublingual x2 which resolved his pain. Patient does have a history of hypertension which has medication was stopped by primary care team a year ago and is likely been untreated for the past year he does vape tobacco. Mom has hypertension but no other known cardiac disease in his family. He is also treated for bipolar disorder and hypothyroidism. Patient is hypertensive today, diastolic pressure is elevated persistently. Spoke with patient's primary care physician Dr. Taylor, discussed he suspects more hypertensive urgency and defers for chest pain observation. We will see patient tomorrow or falling day asked to start him on his losartan 100 mg and add some hydrochlorothiazide. Discussed with patient return precautions if repeat symptoms all questions answered. Discharge Plan Departure Patient Disposition: Home Clinical Impression: Chest pain, Hypertension
[2022-12-18 16:13] LABS: Troponin I < 0.012 ng/mL (0.01-0.034)
[2022-12-18] MEDS: hydroCHLOROthiazide 25 MG TABLET PO (17:12)
[2022-12-18] MEDS: LOSARTAN 50 MG TABLET 100 MG PO (17:12)
--- NOTE | 2022-12-19 12:13 | PC.NURSE ---
patient called and pharmacy does not have prescription and they did not receive a paper copy. I called prescription in to [facility] for Dr. Delatorre for hydrochlorothiazide 25mg tablet PO daily quantity #30 and no refills.
== END 2022-12-18 19:08 | disposition home or self-care (01) ==
LOC: ED 16:52 → AC 17:30
PROVIDERS: Emergency Provider Emergency Medicine; PCP Family Medicine; Referring Provider Emergency Medicine
DX: R07.9 Chest pain, unspecified (principal); I10 Essential (primary) hypertension; Z20.822 Contact with and (suspected) exposure to COVID-19
CPT/HCPCS: 36415; 71045; 80053; 81003; 82550; 83690; 83735; 84484; 85025; 85610; 85730; 87635; 93005; 99284; C9803

== ENCOUNTER → 2023-03-19 10:19 | Outpatient (CLI) | payer OTHER, MEDICAID, SELFPAY ==
[2023-03-19 12:23] LABS: Add Manual Diff / Slide Review NO; Basophils Absolute Auto 0 /uL (0-100); Basophils Percent Auto 0.3 % (0-2); Eosinophils Absolute Auto 100 /uL (0-450); Eosinophils Percent Auto 1.3 % (2-4); Hemoglobin 14.7 g/dL (13.5-17.5); Lymphocytes Absolute Auto 1600 /uL (1100-4500); Lymphocytes Percent Auto 25.9 % (25-40); Mean Corpuscular HGB Conc 35.1 % (30-36); Mean Corpuscular Hemoglobin 29.7 PG (26-34); Mean Corpuscular Volume 84.8 fL (80-100); Monocytes Absolute Auto 300 /uL (0-900); Monocytes Percent Auto 5.6 % (3-14); Neutrophils Absolute Auto 4100 /uL (1500-7000); Neutrophils Percent Auto 66.9 % (50-75); Platelet Count 251 X10^3/uL (150-400); Red Blood Cell Count 4.95 X10^6/uL (4.5-5.9); Red Cell Distribution Width 13.1 % (11.6-14.8); White Blood Cell Count 6.1 X10^3/uL (4.5-11.0)
[2023-03-19 12:42] LABS: Alanine Aminotransferase 34 IU/L (<50); Albumin 4.4 g/dL (3.5-5.0); Albumin Globulin Ratio 1.3 (1.0-2.8); Alkaline Phosphatase 137 U/L (38-126); Aspartate Aminotransferase 29 IU/L (17-59); BUN Creatinine Ratio 17.5 (6-22); Bilirubin Total 0.3 mg/dL (0.2-1.3); Blood Urea Nitrogen 17 mg/dL (9-20); Calcium 8.7 mg/dL (8.4-10.2); Carbon Dioxide 23 mmol/L (22-32); Chloride 105 mmol/L (98-107); Cholesterol 142 mg/dL (140-199); Estimated Glomerular Filt Rate > 60 mL/min (>60); Globulin 3.3 g/dL (1.7-4.1); Glucose 91 mg/dL (70-100); HDL Cholesterol 37 mg/dL (40-60); HEMOLYSIS 16 (0-50); Potassium 4.1 mmol/L (3.4-5.1); Sodium 136 mmol/L (137-145); Total Protein 7.7 g/dL (6.3-8.2); Triglycerides 468 mg/dL (35-150)
[2023-03-19 13:59] LABS: Thyroid Stimulating Hormone 1.01 uIU/mL (0.47-4.68)
[2023-03-22 19:07] LABS: Oxcarbazepin, Trileptal 34 ug/mL (10-35)
== END ==
PROVIDERS: PCP Family Medicine; Referring Provider Psychiatry & Neurology Psychiatry; Visit Provider Psychiatry & Neurology Psychiatry
DX: F33.9 Major depressive disorder, recurrent, unspecified (principal); F41.1 Generalized anxiety disorder; F90.9 Attention-deficit hyperactivity disorder, unspecified type; G47.00 Insomnia, unspecified; Z79.899 Other long term (current) drug therapy
CPT/HCPCS: 36415; 80053; 80061; 80183; 84443; 85025

== ENCOUNTER → 2023-10-04 01:28 | Outpatient (CLI) | payer OTHER, MEDICAID, SELFPAY | PROVIDERS: PCP Family Medicine; Referring Provider Family Medicine; Visit Provider Family Medicine | DX: Z23 Encounter for immunization (principal) | CPT/HCPCS: 90471; 90686 ==

== ENCOUNTER 2023-11-05 21:22 | Emergency (ER) | payer OTHER, SELFPAY ==
[2023-11-05 21:33] VITALS: BP 141/87; PULSE 70; RESP 16; TEMP 37.1; O2SAT 98; BMI 26.6
--- NOTE | 2023-11-06 00:52 | ED.GENADULT ---
HPI - General Adult General Chief complaint: Dental/Oral Stated complaint: abcess in mouth Time Seen by Provider: 11/06/23 00:45 Source: patient Mode of arrival: Ambulatory History of Present Illness HPI narrative: 38-year-old gentleman with a history of bipolar disorder currently stable on medications presents with left lower dental pain. It started at 1:20 a.m. this morning has gotten progressively worse to point he is unable to sleep. He is taken ibuprofen and Tylenol to no effect. He has started to call dentist but does not yet have appointment. He has no fevers, airway is not compromised no other specific complaints Related Data Home Medications Medication Instructions Recorded Confirmed BusPIRone Hydrochloride (Buspirone 30 mg PO AM ##0 10/22/09 08/18/20 HCl) buspirone 30 mg tablet mg PO BID 11/02/19 08/18/20 levothyroxine [L-Thyroxine] PO 11/02/19 08/18/20 methylphenidate HCl [Ritalin] PO 11/02/19 08/18/20 oxcarbazepine 600 mg tablet 600 mg PO TID 11/02/19 08/18/20 sertraline PO 11/02/19 08/18/20 Previous Rx's Medication Instructions Recorded albuterol sulfate 90 mcg/actuation 2 puff inhalation Q4-6H PRN Cough, 11/02/19 aerosol inhaler wheezing, shortness of breath #8 grams benzonatate 100 mg capsule 100 mg PO BID PRN cough #20 caps 11/02/19 mupirocin 2 % topical ointment 1 applic topical TID #30 grams 08/18/20 amoxicillin 500 mg capsule 500 mg PO TID #21 caps 11/06/23 oxycodone-acetaminophen 5 mg-325 1 tab PO Q6H PRN pain #10 tabs 11/06/23 mg tablet Allergies Allergy/AdvReac Type Severity Reaction Status Date / Time iodine Allergy Verified 12/18/22 13:12 lithium Allergy Verified 12/18/22 13:12 Review of Systems Review of Systems Narrative: Pertinent positive and negative findings as per HPI Patient History Medical History (Updated 11/06/23 @ 00:56 by Tri Jarvis MD) Bipolar disorder Skin lesion of hand Social History Smoking Status: Current every day smoker Smoking Status: Current every day smoker tobacco type: vaping Substance Use Type: does not use Exam Initial Vital Signs Initial Vital Signs: Vital Signs Temperature 98.8 F 11/05/23 21:33 Pulse Rate 70 11/05/23 21:33 Respiratory Rate 16 11/05/23 21:33 Blood Pressure 141/87 H 11/05/23 21:33 Pulse Oximetry 98 11/05/23 21:33 Oxygen Delivery Method Room Air 11/05/23 21:33 General: Alert appropriate in no acute distress HEENT: He has some mild swelling the left angle of the jaw and intraoral inspection suggests that his 1st pre molar, mandibular left side is the source of his infection. There is quite a bit of dental work done on that tooth and it looks like there is some open decay at the gumline. He does have mild cervical adenopathy. Respiratory: Able to speak in full sentences, no obvious respiratory distress Skin: No obvious rashes, warm and dry Neurologic: Grossly intact no obvious asymmetries or abnormalities Psych: appropriate insight and affect, cooperative Course Vital Signs Vital signs: Vital Signs - 8 hr 11/05/23 21:33 Temperature 98.8 F Pulse Rate 70 Respiratory Rate 16 Blood Pressure 141/87 H Pulse Oximetry 98 Oxygen Delivery Method Room Air Medical Decision Making MDM Narrative Medical decision making narrative: 38-year-old gentleman with tooth number 19 dental infection with increasing pain. He is treated with a shot of Toradol, given his 1st dose of amoxicillin, a prescription for Percocet for severe pain and instructions to call and establish care with his a dentist for definitive treatment. At this time there is no evidence of sepsis, Azam's angina, pointing abscess requiring drainage or alternative diagnosis that would require additional workup or imaging at this time. Questions are answered and he is safe for discharge Discharge Plan Departure Patient Disposition: Home Clinical Impression: Dental abscess Instructions: DI for Dental Pain Activity Restrictions/Additional Instructions: Thank you for coming in today Dental pain can be truly miserable. I have given you a dose of Toradol as a shot to help with pain tonight. I have also given you a couple of tablets of Percocet to use once you get home this evening. Additionally I have started you on amoxicillin with the 1st dose given in the ER Using 400 mg of ibuprofen (2 [id number] pills) and 1 Tylenol every 6 hours can be very helpful in controlling pain. For severe pain you can use 400 mg of ibuprofen and 1 Percocet. Percocet is a narcotic, can be addictive and will cause constipation. Please complete the entire 7 day course of amoxicillin even if the pain starts to improve. Prescriptions were transmitted to [facility] in [place] You need follow-up with a dentist for definitive treatment of this dental abscess. Prescriptions: New amoxicillin 500 mg capsule 500 mg PO TID Qty: 21 0RF oxycodone-acetaminophen 5-325 mg tablet 1 tab PO Q6H PRN (Reason: pain) Qty: 10 0RF No Action oxcarbazepine 600 mg tablet 600 mg PO TID levothyroxine PO buspirone 30 mg tablet PO BID sertraline PO methylphenidate HCl PO benzonatate 100 mg capsule 100 mg PO BID PRN (Reason: cough) Qty: 20 0RF albuterol sulfate 90 mcg/actuation HFA aerosol inhaler 2 puff INHALATION Q4-6H PRN (Reason: Cough, wheezing, shortness of breath) Qty: 8 0RF mupirocin 2 % ointment 1 applic TOP TID Qty: 30 0RF BusPIRone Hydrochloride (Buspirone HCl) 30 mg PO AM Qty: 0 Referrals: Evan Taylor MD [Primary Care Provider] - Stand Alone Forms: Patient Portal/API
[2023-11-06 01:10] VITALS: BP 141/87; PULSE 63; RESP 18; TEMP 36.5; O2SAT 97
[2023-11-06] MEDS: OXYCODONE/APAP 5/325 PREPACK 1 BOTTLE MISC (01:12)
[2023-11-06] MEDS: KETOROLAC 30 MG/ML VIAL IM (01:12)
[2023-11-06] MEDS: AMOXICILLIN 250 MG CAPSULE 500 MG PO (01:12)
== END 2023-11-06 01:24 | disposition home or self-care (01) ==
PROVIDERS: Emergency Provider Emergency Medicine; PCP Family Medicine
DX: K04.7 Periapical abscess without sinus (principal)
CPT/HCPCS: 96372; 99283; J1885

== ENCOUNTER → 2024-09-30 14:47 | Outpatient (CLI) | payer OTHER, SELFPAY | PROVIDERS: PCP Family Medicine; Referring Provider Internal Medicine; Visit Provider Internal Medicine | DX: Z23 Encounter for immunization (principal) | CPT/HCPCS: 90471; 90656 ==